=== PATIENT | male | born 1965 | race Caucasian/White ===

== ENCOUNTER 2019-05-25 11:36 | Emergency (ER) | payer BC ==
[~2019-05-25] VITALS: Ht 180.3 cm; Wt 131.5 kg
[2019-05-25] MEDS ORDERED: POLYTRIM 1000010 M1 OPH (13:10)
== END 2019-05-25 13:14 | disposition home or self-care (01) ==
LOC: ED 11:36
DX: H11.422 Conjunctival edema, left eye (principal); Z88.7 Allergy status to serum and vaccine